=== PATIENT | male | born 2000 | race Caucasian/White ===

== ENCOUNTER → 2018-12-21 19:51 | Emergency (ER) | payer OTHER ==
[2018-12-21 20:02] VITALS: BP 109/74
--- NOTE | 2018-12-21 22:45 | ED ---
GI/ HPI - HPI Summary HPI Summary: This patient is a 18 year old male presenting to [facility] accompanied by family with a chief complaint of left testicular pain since earlier today. Patient states that he was playing baseball and the ball bounced off of his bat and hit his left testicle. Currently, the scrotal area pain has been alleviated, but the sharp pelvic pain remains. The pain is rated 8/10 in severity. Symptoms aggravated by nothing. Symptoms alleviated by nothing. The patient treated the sx with Tylenol PEDIATRIC ASSISTANT to very mild relief and ibuprofen to much better relief. Patient denies any other medical complaints at this time. - History of Current Complaint Chief Complaint: EDUrogenitalProblems Time Seen by Provider: 12/21/18 22:25 Stated Complaint: SWOLLEN TESTICLE Hx Obtained From: Patient Onset/Duration: Started Hours Ago, Still Present Timing: Constant Severity: Severe Current Severity: Moderate Pain Intensity: 8 Additional Locations for Males: Testicles Pain Characteristics: Sharp Aggravating Factor(s): Nothing Alleviating Factor(s): Nothing - Allergy/Home Medications Allergies/Adverse Reactions: Allergies Allergy/AdvReac Type Severity Reaction Status Date / Time No Known Allergies Allergy Unverified 06/21/17 14:02 PMH/Surg Hx/FS Hx/Imm Hx Previously Healthy: Yes Endocrine/Hematology History: Denies: Hx Diabetes Cardiovascular History: Denies: Hx Congestive Heart Failure, Hx Hypertension, Hx Pacemaker/ICD History: Denies: Hx Renal Disease Sensory History: Denies: Hx Hearing Aid Opthamlomology History: Denies: Hx Legally Blind EENT History: Denies: Hx Deafness Psychiatric History: Denies: Hx Panic Disorder - Surgical History Surgery Procedure, Year, and Place: ADNOID REMOVAL, TONSILECTOMY Infectious Disease History: No Infectious Disease History: Denies: Traveled Outside the [place] in Last 30 Days - Family History Known Family History: Negative: Hypertension - Social History Occupation: Student Lives: Dormitory/Roommates Alcohol Use: None Hx Substance Use: No Substance Use Type: Reports: None Hx Tobacco Use: No Smoking Status (MU): Never Smoked Tobacco Review of Systems Negative: Fever Positive: other - testicular pain All Other Systems Reviewed And Are Negative: Yes Physical Exam - Summary Physical Exam Summary: Appearance: Well-appearing, Well-nourished, lying in bed comfortably Skin: Warm, dry, no obvious rash Eyes: sclera anicteric, no conjunctival pallor ENT: mucous membranes moist, pharynx appears normal Neck: Supple, nontender Respiratory: Clear to auscultation, no signs of respiratory distress Cardiovascular: Normal S1, S2. No murmurs. Normal distal pulses in tibial and radial bilaterally. Abdomen: Soft, nontender, normal active bowel sounds present Pelvic: Scrotal tenderness, Mild swelling to left testicle with diffuse tense feeling to it Musculoskeletal: Normal, Strength/ROM Intact Neurological: A&Ox3, awake and alert, mentation is normal, speech is fluent and appropriate Psychiatric: affect is normal, does not appear anxious or depressed Triage Information Reviewed: Yes Vital Signs On Initial Exam: Initial Vitals Temp Pulse Resp BP Pulse Ox 98.7 F 63 16 109/74 97 12/21/18 19:59 12/21/18 19:59 12/21/18 19:59 12/21/18 19:59 12/21/18 19:59 Vital Signs Reviewed: Yes Diagnostics - Vital Signs Vital Signs Temp Pulse Resp BP Pulse Ox 12/21/18 19:59 98.7 F 63 16 109/74 97 - Laboratory Lab Statement: Any lab studies that have been ordered have been reviewed, and results considered in the medical decision making process. GIGU Course/Dx - Course Course Of Treatment: This patient is a 18 year old male presenting to [facility] accompanied by family with a chief complaint of left testicular pain since earlier today. Patient states that he was playing baseball and the ball bounced off of his bat and hit his left testicle. Patient will be discharged with testicular contustion. Patient is advised to follow up with PCP in 2 days. The patient is agreeable with this plan. - Diagnoses Provider Diagnoses: Contusion of testicle Discharge - Sign-Out/Discharge Documenting (check all that apply): Patient Departure Patient Received Moderate/Deep Sedation with Procedure: No - Discharge Plan Condition: Stable Disposition: HOME Patient Education Materials: Testicle Pain (ED) Referrals: Angely Garcia MD [Primary Care Provider] - Additional Instructions: The pre printed instructions are somewhat generalized, in your case with trauma the main treatment is rest, ice, OTC analgesics and time for the pain and swelling to come down. This will likely take several days. - Billing Disposition and Condition Condition: STABLE Disposition: Home - Attestation Statements Document Initiated by Scribe: Yes Documenting Scribe: Ronaldo Benavides Provider For Whom Anai is Documenting (Include Credential): Zhao Collins MD Scribe Attestation: I, rachelle Cruzibed for Zhao Collins MD on 12/27/18 at 0612. Scribe Documentation Reviewed: Yes Provider Attestation: The documentation as recorded by the Ronaldo salgado accurately reflects the service I personally performed and the decisions made by me, Zhao Collins MD Status of Scribe Document: Viewed
== END | disposition home or self-care (01) ==
LOC: ED 19:51
DX: S30.22XA Contusion of scrotum and testes, initial encounter (principal); W21.03XA Struck by baseball, initial encounter; Y93.64 Activity, baseball; Y92.9 Unspecified place or not applicable
CPT/HCPCS: 76870; 99282